=== PATIENT | male | born 1995 | race Caucasian/White ===

== ENCOUNTER 2016-11-05 15:21 | Emergency (ER) | payer OTHER ==
[2016-11-05] MEDS ORDERED: Naproxen 550 mg Tab PO STA (15:37)
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
[2016-11-05 15:47] VITALS: BP 127/77; PULSE 74; RESP 18; TEMP 98.1; O2SAT 99
== END 2016-11-05 16:52 | disposition home or self-care (01) ==
LOC: C.ER 15:21
DX: S00.531A Contusion of lip, initial encounter (principal); S09.90XA Unspecified injury of head, initial encounter; Y04.2XXA Assault by strike against or bumped into by another person, initial encounter; Y92.9 Unspecified place or not applicable